=== PATIENT | male | born 1945 | race Caucasian/White ===

== ENCOUNTER 2020-04-21 11:34 | Emergency (ER) | payer MEDICARE, OTHER, SELFPAY ==
[2020-04-21 11:39] VITALS: BP 165/81; PULSE 70; RESP 16; TEMP 36.1; O2SAT 97; BMI 25.7
--- NOTE | 2020-04-21 11:39 | DI.RAD.S_ITS ---
PROCEDURE: XR CHEST 1V INDICATIONS: chest pain TECHNIQUE: One view of the chest was acquired. COMPARISON: None. FINDINGS: Surgical changes and devices: None. Lungs and pleura: Lungs are clear. No pleural effusions or pneumothorax. Mediastinum: Mediastinal contours appear normal. Heart size is normal. Bones and chest wall: No suspicious bony lesions. Overlying soft tissues appear unremarkable. IMPRESSION: Normal for age, source of current chest pain symptoms is not seen. Dictated by: Tashi Giron M.D. on 04/21/2020 at 12:39 Approved by: Tashi Giron M.D. on 04/21/2020 at 12:39
[2020-04-21 12:17] LABS: Add Manual Diff / Slide Review NO; Basophils Absolute Auto 0 /uL (0-100); Basophils Percent Auto 0.7 % (0-2); Eosinophils Absolute Auto 100 /uL (0-450); Eosinophils Percent Auto 1.3 % (2-4); Hematocrit 45.1 % (41-53); Hemoglobin 15.5 g/dL (13.5-17.5); Lymphocytes Absolute Auto 1000 /uL (1100-4500); Lymphocytes Percent Auto 16.4 % (25-40); Mean Corpuscular HGB Conc 34.4 % (30-36); Mean Corpuscular Hemoglobin 32.1 PG (26-34); Mean Corpuscular Volume 93.3 fL (80-100); Monocytes Absolute Auto 300 /uL (0-900); Monocytes Percent Auto 5.5 % (3-14); Neutrophils Absolute Auto 4400 /uL (1500-7000); Neutrophils Percent Auto 76.1 % (50-75); Platelet Count 180 X10^3/uL (150-400); Red Blood Cell Count 4.84 X10^6/uL (4.5-5.9); Red Cell Distribution Width 13.4 % (11.6-14.8); White Blood Cell Count 5.8 X10^3/uL (4.5-11.0)
[2020-04-21 12:27] LABS: Prothrombin Time 11.3 SECONDS (10.1-12.7)
[2020-04-21 12:29] LABS: PTT Partial Thromboplastin Tim 30 SECONDS (26.4-36.2)
[2020-04-21 12:31] LABS: Alanine Aminotransferase 206 IU/L (<50); Albumin 4.4 g/dL (3.5-5.0); Albumin Globulin Ratio 1.6 (1.0-2.8); Alkaline Phosphatase 115 U/L (38-126); Aspartate Aminotransferase 150 IU/L (17-59); BUN Creatinine Ratio 19.2 (6-22); Bilirubin Total 1.3 mg/dL (0.2-1.3); Blood Urea Nitrogen 15 mg/dL (9-20); Calcium 8.8 mg/dL (8.4-10.2); Carbon Dioxide 30 mmol/L (22-32); Chloride 104 mmol/L (98-107); Creatine Kinase 102 U/L (55-170); Estimated Glomerular Filt Rate > 60.0 mL/min (>60); Globulin 2.8 g/dL (1.7-4.1); Glucose 88 mg/dL (80-110); HEMOLYSIS < 15 (0-50); Lipase 79 U/L (23-300); Potassium 3.9 mmol/L (3.4-5.1); Sodium 139 mmol/L (137-145); Total Protein 7.2 g/dL (6.3-8.2)
[2020-04-21 12:43] LABS: Troponin I < 0.012 ng/mL (0.01-0.034)
[2020-04-21 12:46] LABS: CKMB % Relative Index 1.4 % (1.5-5.0)
[2020-04-21 15:10] LABS: Creatine Kinase 96 U/L (55-170)
[2020-04-21 15:14] VITALS: BP 162/80; PULSE 64; RESP 17; O2SAT 98
[2020-04-21 15:21] LABS: Troponin I < 0.012 ng/mL (0.01-0.034)
[2020-04-21 16:21] VITALS: BP 154/86; PULSE 75; RESP 16; O2SAT 96
--- NOTE | 2020-04-21 18:20 | ED_ITS ---
HPI - Chest Pain <JOSE ROBERTO Melchor - Last Filed: 04/21/20 18:39> General Chief Complaint: Chest Pain Stated Complaint: SEVERE CHEST PAIN STARTED LAST NIGHT Time Seen by Provider: 04/21/20 14:43 Source: patient Mode of arrival: Ambulatory Limitations: no limitations History of Present Illness HPI narrative: The patient is a 74-year-old male with history of acid reflux who presents with a chief complaint of 2 hours of epigastric pain last night. He states it happened right after he had dinner, that he had sausage and mashed potatoes. No radiation. No lightheadedness or dizziness. No palpitations. No swelling of the extremities. No fevers no nausea vomiting or diarrhea. He s tates that it lasted for 2 hours and then he felt fine. He is currently without complaint upon arrival to the emergency department today. He denies any history of abdominal surgeries. He did not take anything to help the pain. Related Data Allergies Allergy/AdvReac Type Severity Reaction Status Date / Time No Known Drug Allergies Allergy Verified 04/21/20 15:13 Review of Systems <JOSE ROBERTO Melchor - Last Filed: 04/21/20 18:39> Review of Systems Narrative: GENERAL: Denies chills, fatigue, malaise, fever, sweats. HEENT: Denies sinus pain, ear pain, sore throat, difficulty swallowing, dizziness. RESPIRATORY: Denies dyspnea, cough, wheezing, hemoptysis, sputum. CARDIOVASCULAR: Denies chest pain, palpitations, orthopnea, edema, GASTROINTESTINAL: See HPI : Denies dysuria, frequency, incontinence, hematuria, urinary retention. MUSCULOSKELETAL: denies weakness, joint pain, or bony pain SKIN: Denies rash, skin lesions, or other NEUROLOGIC: Denies weakness, headache, numbness, change in speech, confusion, seizures, incoordination. PSYCHIATRIC: No concerning psychosocial issues. 12 point review of systems is negative except for those stated above Patient History <JOSE ROBERTO Melchor - Last Filed: 04/21/20 18:39> Medical History (Updated 04/21/20 @ 18:25 by JOSE ROBERTO Melchor) Hypertension (Acute) Social History Smoking Status: Former smoker Smoking Status: Former smoker alcohol intake frequency: 0-2 drinks per day Substance Use Type: does not use Exam <CARROLL Melchor-BC - Last Filed: 04/21/20 18:39> Narrative Exam Narrative: GENERAL: This is a well-nourished, well-developed patient, in no acute distress HEAD: Atraumatic. Normocephalic. No temporal or scalp tenderness. EYES: Pupils equal round and reactive. Extraocular motions intact. No scleral icterus. No injection or drainage. ENT: Nose without bleeding, purulent drainage or septal hematoma. Throat without erythema, tonsillar hypertrophy or exudate. Uvula midline. Airway patent. NECK: Trachea midline. No JVD or lymphadenopathy. Supple, nontender, no meningeal signs. CARDIOVASCULAR: Regular rate and rhythm RESPIRATORY: Clear to auscultation. Breath sounds equal bilaterally. No wheezes, rales, or rhonchi. Node no cough. No increased respiratory effort. No acc essory muscle use. GASTROINTESTINAL: Abdomen soft, non-tender, nondistended. No hepato-splenomegaly, or palpable masses. No guarding. No pain to epigastric palpation. Negative Leahy sign. EXTREMITIES: No clubbing, cyanosis, or edema. No joint tenderness, effusion, or edema noted. BACK: Nontender without deformity or crepitance. No flank tenderness. NEURO: AOx3. SKIN: No rash or erythema. Initial Vital Signs Initial Vital Signs: Vital Signs Temperature 96.9 F L 04/21/20 11:39 Pulse Rate 70 04/21/20 11:39 Respiratory Rate 16 04/21/20 11:39 Blood Pressure 165/81 H 04/21/20 11:39 Pulse Oximetry 97 04/21/20 11:39 <Estephanie Marcano DO - Last Filed: 04/24/20 08:18> Initial Vital Signs Initial Vital Signs: Vital Signs Temperature 96.9 F L 04/21/20 11:39 Pulse Rate 70 04/21/20 11:39 Respiratory Rate 16 04/21/20 11:39 Blood Pressure 165/81 H 04/21/20 11:39 Pulse Oximetry 97 04/21/20 11:39 Scores <CARROLL Melchor-BC - Last Filed: 04/21/20 18:39> GCS [place] coma scale eye opening: Spontaneous [place] coma scale verbal response: Orientated [place] coma scale motor response: Obey commands Wong coma scale total score: 15 Course <JOSE ROBERTO Melchor - Last Filed: 04/21/20 18:39> Orders Ordered: ED Orders 04/21/20 11:39 XR chest 1V Stat EKG-12 Lead Stat 04/21/20 12:10 Complete Blood Count AUTO DIFF Stat Comprehensive Metabolic Panel Stat Lipase Stat Partial Thromboplastin Time Stat Prothrombin Time INR Stat Troponin & CK Cardiac Panel Stat 04/21/20 14:53 Troponin & CK Cardiac Panel Stat Vital Signs Vital signs: Vital Signs - 8 hr 04/21/20 11:39 04/21/20 15:14 04/21/20 16:21 Temperature 96.9 F L Pulse Rate 70 64 75 Respiratory Rate 16 17 16 Blood Pressure 165/81 H 154/86 H Blood Pressure [Right Arm] 162/80 H Pulse Oximetry 97 98 96 <Estephanie Marcano DO - Last Filed: 04/24/20 08:18> Orders Ordered: ED Orders 04/21/20 11:39 XR chest 1V Stat EKG-12 Lead Stat 04/21/20 12:10 Complete Blood Count AUTO DIFF Stat Comprehensive Metabolic Panel Stat Lipase Stat Partial Thromboplastin Time Stat Prothrombin Time INR Stat Troponin & CK Cardiac Panel Stat 04/21/20 14:53 Troponin & CK Cardiac Panel Stat Vital Signs Vital signs: Vital Signs - 8 hr 04/21/20 11:39 04/21/20 15:14 04/21/20 16:21 Temperature 96.9 F L Pulse Rate 70 64 75 Respiratory Rate 16 17 16 Blood Pressure 165/81 H 154/86 H Blood Pressure [Right Arm] 162/80 H Pulse Oximetry 97 98 96 MDM - Chest Pain <JOSE ROBERTO Melchor - Last Filed: 04/21/20 18:39> Lab Data Attestation: I reviewed the patient's lab results. Result diagrams: 04/21/20 12:10 04/21/20 12:10 Labs: Lab Results 04/21/20 04/21/20 04/21/20 Range/Units 12:10 12:10 12:10 WBC 5.8 (4.5-11.0) X10^3/uL RBC 4.84 (4.5-5.9) X10^6/uL Hgb 15.5 (13.5-17.5) g/dL Hct 45.1 (41-53) % MCV 93.3 (80-100) fL MCH 32.1 (26-34) PG MCHC 34.4 (30-36) % RDW 13.4 (11.6-14.8) % Plt Count 180 (150-400) X10^3/uL Neut % (Auto) 76.1 H (50-75) % Lymph % (Auto) 16.4 L (25-40) % Gregg % (Auto) 5.5 (3-14) % Eos % (Auto) 1.3 L (2-4) % Baso % (Auto) 0.7 (0-2) % Neut # (Auto) 4400 (8425-3151) /uL Lymph # (Auto) 1000 L (3221-7874) /uL Gregg # (Auto) 300 (0-900) /uL Eos # (Auto) 100 (0-450) /uL Baso # (Auto) 0 (0-100) /uL PT 11.3 (10.1-12.7) SECONDS INR 1.0 (0.9-1.3) APTT 30 (26.4-36.2) SECONDS Sodium 139 (137-145) mmol/L Potassium 3.9 (3.4-5.1) mmol/L Chloride 104 (98-107) mmol/L Carbon Dioxide 30 (22-32) mmol/L BUN 15 (9-20) mg/dL Creatinine 0.78 (0.66-1.25) mg/dL Estimated GFR > 60.0 (>60) mL/min BUN/Creatinine Ratio 19.2 (6-22) Glucose 88 (80-110) mg/dL Calcium 8.8 (8.4-10.2) mg/dL Total Bilirubin 1.3 (0.2-1.3) mg/dL AST 150 H (17-59) IU/L ALT 206 H (<50) IU/L Alkaline Phosphatase 115 (38-126) U/L Total Creatine Kinase 102 (55-170) U/L CK-MB (CK-2) 1.40 (<2.37) ng/mL CK-MB (CK-2) Rel Index 1.4 L (1.5-5.0) % Troponin I < 0.012 (0.01-0.034) ng/mL Total Protein 7.2 (6.3-8.2) g/dL Albumin 4.4 (3.5-5.0) g/dL Globulin 2.8 (1.7-4.1) g/dL Albumin/Globulin Ratio 1.6 (1.0-2.8) Lipase 79 (23-300) U/L // Range/Units 14:53 WBC (4.5-11.0) X10^3/uL RBC (4.5-5.9) X10^6/uL Hgb (13.5-17.5) g/dL Hct (41-53) % MCV (80-100) fL MCH (26-34) PG MCHC (30-36) % RDW (11.6-14.8) % Plt Count (150-400) X10^3/uL Neut % (Auto) (50-75) % Lymph % (Auto) (25-40) % Gregg % (Auto) (3-14) % Eos % (Auto) (2-4) % Baso % (Auto) (0-2) % Neut # (Auto) (1746-3542) /uL Lymph # (Auto) (5266-0883) /uL Gregg # (Auto) (0-900) /uL Eos # (Auto) (0-450) /uL Baso # (Auto) (0-100) /uL PT (10.1-12.7) SECONDS INR (0.9-1.3) APTT (26.4-36.2) SECONDS Sodium (137-145) mmol/L Potassium (3.4-5.1) mmol/L Chloride (98-107) mmol/L Carbon Dioxide (22-32) mmol/L BUN (9-20) mg/dL Creatinine (0.66-1.25) mg/dL Estimated GFR (>60) mL/min BUN/Creatinine Ratio (6-22) Glucose (80-110) mg/dL Calcium (8.4-10.2) mg/dL Total Bilirubin (0.2-1.3) mg/dL AST (17-59) IU/L ALT (<50) IU/L Alkaline Phosphatase (38-126) U/L Total Creatine Kinase 96 (55-170) U/L CK-MB (CK-2) TNP (<2.37) ng/mL CK-MB (CK-2) Rel Index TNP (1.5-5.0) % Troponin I < 0.012 (0.01-0.034) ng/mL Total Protein (6.3-8.2) g/dL Albumin (3.5-5.0) g/dL Globulin (1.7-4.1) g/dL Albumin/Globulin Ratio (1.0-2.8) Lipase (23-300) U/L Imaging Data Chest x-ray: Radiologist's Impression: [facility] [place] [id number] XRay Report Signed Patient: Dieudonne McclainR#: [id number] : 6Acct:[id number] Age/Sex: 74 / MDate of Service: 04/21/20 Loc: ED Accession Number: [id number] Procedure: XR chest 1V Ordering Provider: Estephanie Marcano D.O. PROCEDURE: XR CHEST 1V INDICATIONS: chest pain TECHNIQUE: One view of the chest was acquired. COMPARISON: None. FINDINGS: Surgical changes and devices: None. Lungs and pleura: Lungs are clear. No pleural effusions or pneumothorax. Mediastinum: Mediastinal contours appear normal. Heart size is normal. Bones and chest wall: No suspicious bony lesions. Overlying soft tissues appear unremarkable. IMPRESSION: Normal for age, source of current chest pain symptoms is not seen. Dictated by: Tashi Giron M.D. on 04/21/2020 at 12:39 Approved by: Tashi Giron M.D. on 04/21/2020 at 12:39 ECG Data Attestation: I personally reviewed and interpreted this ECG as follows: Interpretation: Sinus rhythm. Ventricular rate 70. P.r. interval 189. QRS 101. viewed by Dr Marcano MDM Narrative Medical decision making narrative: The patient is a 74-year-old male who presents with a chief complaint of severe epigastric pain for 2 hours last night after eating a sausage and mashed potatoes. His EKG has no acute findings, his initial troponin is negative and his 3 hour repeat troponin is also negative. He has been without pain since last night. He has no evidence of acute coronary syndrome today, with normal EKG, negative troponin x2 as well as normal overall labs. It is possible that he had an episode of acid reflux or biliary colic after eating a fatty meal, such as his bratwurst. However encouraged him to follow up with primary care provider and come back to the emergency department for any acute concerns in the meantime. I discussed that evaluation today does not replace a further cardiac workup including stress test etcetera. The patient requested to leave several times throughout his stay in the emergency department. Patient has no questions or concerns upon discharge and states understanding of return precautions as well as follow-up care. <Estephanie Marcano, DO - Last Filed: 04/24/20 08:18> Lab Data Labs: Lab Results 04/21/20 04/21/20 04/21/20 Range/Units 12:10 12:10 12:10 WBC 5.8 (4.5-11.0) X10^3/uL RBC 4.84 (4.5-5.9) X10^6/uL Hgb 15.5 (13.5-17.5) g/dL Hct 45.1 (41-53) % MCV 93.3 (80-100) fL MCH 32.1 (26-34) PG MCHC 34.4 (30-36) % RDW 13.4 (11.6-14.8) % Plt Count 180 (150-400) X10^3/uL Neut % (Auto) 76.1 H (50-75) % Lymph % (Auto) 16.4 L (25-40) % Gregg % (Auto) 5.5 (3-14) % Eos % (Auto) 1.3 L (2-4) % Baso % (Auto) 0.7 (0-2) % Neut # (Auto) 4400 (1834-8599) /uL Lymph # (Auto) 1000 L (9332-6534) /uL Gregg # (Auto) 300 (0-900) /uL Eos # (Auto) 100 (0-450) /uL Baso # (Auto) 0 (0-100) /uL PT 11.3 (10.1-12.7) SECONDS INR 1.0 (0.9-1.3) APTT 30 (26.4-36.2) SECONDS Sodium 139 (137-145) mmol/L Potassium 3.9 (3.4-5.1) mmol/L Chloride 104 (98-107) mmol/L Carbon Dioxide 30 (22-32) mmol/L BUN 15 (9-20) mg/dL Creatinine 0.78 (0.66-1.25) mg/dL Estimated GFR > 60.0 (>60) mL/min BUN/Creatinine Ratio 19.2 (6-22) Glucose 88 (80-110) mg/dL Calcium 8.8 (8.4-10.2) mg/dL Total Bilirubin 1.3 (0.2-1.3) mg/dL AST 150 H (17-59) IU/L ALT 206 H (<50) IU/L Alkaline Phosphatase 115 (38-126) U/L Total Creatine Kinase 102 (55-170) U/L CK-MB (CK-2) 1.40 (<2.37) ng/mL CK-MB (CK-2) Rel Index 1.4 L (1.5-5.0) % Troponin I < 0.012 (0.01-0.034) ng/mL Total Protein 7.2 (6.3-8.2) g/dL Albumin 4.4 (3.5-5.0) g/dL Globulin 2.8 (1.7-4.1) g/dL Albumin/Globulin Ratio 1.6 (1.0-2.8) Lipase 79 (23-300) U/L 06/25/20 Range/Units 14:53 WBC (4.5-11.0) X10^3/uL RBC (4.5-5.9) X10^6/uL Hgb (13.5-17.5) g/dL Hct (41-53) % MCV (80-100) fL MCH (26-34) PG MCHC (30-36) % RDW (11.6-14.8) % Plt Count (150-400) X10^3/uL Neut % (Auto) (50-75) % Lymph % (Auto) (25-40) % Gregg % (Auto) (3-14) % Eos % (Auto) (2-4) % Baso % (Auto) (0-2) % Neut # (Auto) (0060-5125) /uL Lymph # (Auto) (5195-9361) /uL Gregg # (Auto) (0-900) /uL Eos # (Auto) (0-450) /uL Baso # (Auto) (0-100) /uL PT (10.1-12.7) SECONDS INR (0.9-1.3) APTT (26.4-36.2) SECONDS Sodium (137-145) mmol/L Potassium (3.4-5.1) mmol/L Chloride (98-107) mmol/L Carbon Dioxide (22-32) mmol/L BUN (9-20) mg/dL Creatinine (0.66-1.25) mg/dL Estimated GFR (>60) mL/min BUN/Creatinine Ratio (6-22) Glucose (80-110) mg/dL Calcium (8.4-10.2) mg/dL Total Bilirubin (0.2-1.3) mg/dL AST (17-59) IU/L ALT (<50) IU/L Alkaline Phosphatase (38-126) U/L Total Creatine Kinase 96 (55-170) U/L CK-MB (CK-2) TNP (<2.37) ng/mL CK-MB (CK-2) Rel Index TNP (1.5-5.0) % Troponin I < 0.012 (0.01-0.034) ng/mL Total Protein (6.3-8.2) g/dL Albumin (3.5-5.0) g/dL Globulin (1.7-4.1) g/dL Albumin/Globulin Ratio (1.0-2.8) Lipase (23-300) U/L Discharge Plan Departure Patient Disposition: Home Clinical Impression: Atypical chest pain, Epigastric abdominal pain Discharge Date/Time: 04/21/20 16:21 Instructions: DI for Abdominal Pain-Adult, DI for Atypical Chest Pain, DI for Chest Pain Activity Restrictions/Additional Instructions: Thank you for trusting us with your care today. As I discussed, your lab work came back very well, EKG is reassuring. I am not exactly sure why you had this epigastric pain last night as epigastric pain has many causes. Please follow-up with primary care provider in the next few days. Please come back to the emergency department for any acute concerns such as severe chest pain, shortness of breath, concern of heart attack or stroke. Referrals: Tab Zhou MD [Physician] - <Estephanie Marcano DO - Last Filed: 04/24/20 08:18> Cosign ED Attending Cosignature Attestation: I was immediately available in the department for consultation. Documentation has been reviewed. I agree with assessment and plan.
== END 2020-04-21 16:21 | disposition home or self-care (01) ==
PROVIDERS: Emergency Medicine; Emergency Provider Nurse Practitioner Family
DX: R07.89 Other chest pain (principal); R10.13 Epigastric pain; I10 Essential (primary) hypertension
CPT/HCPCS: 36415; 71045; 80053; 82550; 82553; 83690; 84484; 85025; 85610; 85730; 93005; 99284

== ENCOUNTER → 2020-10-07 19:32 | Outpatient (ROUT) | payer MEDICARE, OTHER, SELFPAY ==
[2020-10-07 19:43] LABS: Add Manual Diff / Slide Review NO; Basophils Absolute Auto 100 /uL (0-100); Basophils Percent Auto 0.9 % (0-2); Eosinophils Absolute Auto 100 /uL (0-450); Eosinophils Percent Auto 1.8 % (2-4); Hematocrit 49.5 % (41-53); Hemoglobin 16.5 g/dL (13.5-17.5); Lymphocytes Absolute Auto 1700 /uL (1100-4500); Mean Corpuscular HGB Conc 33.3 % (30-36); Mean Corpuscular Hemoglobin 31.9 PG (26-34); Mean Corpuscular Volume 95.5 fL (80-100); Monocytes Absolute Auto 400 /uL (0-900); Neutrophils Absolute Auto 4000 /uL (1500-7000); Neutrophils Percent Auto 63.3 % (50-75); Platelet Count 204 X10^3/uL (150-400); Red Blood Cell Count 5.18 X10^6/uL (4.5-5.9); Red Cell Distribution Width 13.3 % (11.6-14.8); White Blood Cell Count 6.3 X10^3/uL (4.5-11.0)
[2020-10-07 19:50] LABS: Alanine Aminotransferase 24 IU/L (<50); Albumin 4.3 g/dL (3.5-5.0); Albumin Globulin Ratio 1.5 (1.0-2.8); Alkaline Phosphatase 61 U/L (38-126); Aspartate Aminotransferase 26 IU/L (17-59); BUN Creatinine Ratio 20.2 (6-22); Bilirubin Total 1.4 mg/dL (0.2-1.3); Blood Urea Nitrogen 20 mg/dL (9-20); Calcium 9.1 mg/dL (8.4-10.2); Carbon Dioxide 33 mmol/L (22-32); Chloride 103 mmol/L (98-107); Estimated Glomerular Filt Rate > 60.0 mL/min (>60); Globulin 2.9 g/dL (1.7-4.1); Glucose 68 mg/dL (80-110); HEMOLYSIS 15 (0-50); Magnesium 2.2 mg/dL (1.6-2.3); Sodium 139 mmol/L (137-145); Total Protein 7.2 g/dL (6.3-8.2)
== END ==
PROVIDERS: Visit Provider Internal Medicine
DX: R53.83 Other fatigue (principal); E83.42 Hypomagnesemia
CPT/HCPCS: 80053; 83735; 84443; 85025

== ENCOUNTER → 2021-01-02 19:28 | Outpatient (ROUT) | payer MEDICARE, OTHER, SELFPAY ==
[2021-01-02 19:48] LABS: Alanine Aminotransferase 22 IU/L (<50); Albumin 4.2 g/dL (3.5-5.0); Albumin Globulin Ratio 1.5 (1.0-2.8); Alkaline Phosphatase 71 U/L (38-126); Aspartate Aminotransferase 25 IU/L (17-59); BUN Creatinine Ratio 20.8 (6-22); Bilirubin Total 1.1 mg/dL (0.2-1.3); Blood Urea Nitrogen 21 mg/dL (9-20); Calcium 9.1 mg/dL (8.4-10.2); Carbon Dioxide 30 mmol/L (22-32); Chloride 104 mmol/L (98-107); Cholesterol 192 mg/dL (140-199); Estimated Glomerular Filt Rate > 60.0 mL/min (>60); Globulin 2.8 g/dL (1.7-4.1); Glucose 102 mg/dL (80-110); HDL Cholesterol 91 mg/dL (40-60); HEMOLYSIS < 15 (0-50); LDL Cholesterol Calculated 90 mg/dL (<100); Magnesium 2.4 mg/dL (1.6-2.3); Potassium 4.4 mmol/L (3.4-5.1); Sodium 139 mmol/L (137-145); Triglycerides 55 mg/dL (35-150)
[2021-01-02 19:51] LABS: Add Manual Diff / Slide Review NO; Basophils Absolute Auto 100 /uL (0-100); Basophils Percent Auto 0.9 % (0-2); Eosinophils Absolute Auto 300 /uL (0-450); Eosinophils Percent Auto 3.7 % (2-4); Hematocrit 49.1 % (41-53); Hemoglobin 16.2 g/dL (13.5-17.5); Lymphocytes Absolute Auto 1500 /uL (1100-4500); Lymphocytes Percent Auto 22.2 % (25-40); Mean Corpuscular Hemoglobin 31.6 PG (26-34); Mean Corpuscular Volume 95.5 fL (80-100); Monocytes Absolute Auto 400 /uL (0-900); Monocytes Percent Auto 6.4 % (3-14); Neutrophils Absolute Auto 4700 /uL (1500-7000); Neutrophils Percent Auto 66.8 % (50-75); Platelet Count 203 X10^3/uL (150-400); Red Blood Cell Count 5.14 X10^6/uL (4.5-5.9); Red Cell Distribution Width 12.8 % (11.6-14.8)
[2021-01-02 20:22] LABS: TSH w/ Reflex to FT4 2.36 uIU/mL (0.47-4.68)
== END ==
PROVIDERS: Visit Provider Internal Medicine
DX: I44.1 Atrioventricular block, second degree (principal); E83.42 Hypomagnesemia
CPT/HCPCS: 80053; 80061; 83735; 84443; 85025

== ENCOUNTER → 2022-12-26 15:22 | Outpatient (CLI) | payer MEDICARE, OTHER, SELFPAY ==
[2022-12-26 16:06] LABS: Hematocrit 44.2 % (41-53); Hemoglobin 14.8 g/dL (13.5-17.5); Mean Corpuscular HGB Conc 33.5 % (30-36); Mean Corpuscular Hemoglobin 31.6 PG (26-34); Mean Corpuscular Volume 94.4 fL (80-100); Platelet Count 195 X10^3/uL (150-400); Red Blood Cell Count 4.68 X10^6/uL (4.5-5.9); Red Cell Distribution Width 13.3 % (11.6-14.8); White Blood Cell Count 5.5 X10^3/uL (4.5-11.0)
[2022-12-26 16:29] LABS: Alanine Aminotransferase 24 IU/L (<50); Albumin Globulin Ratio 1.4 (1.0-2.8); Alkaline Phosphatase 57 U/L (38-126); Aspartate Aminotransferase 24 IU/L (17-59); BUN Creatinine Ratio 19.1 (6-22); Bilirubin Total 1.5 mg/dL (0.2-1.3); Blood Urea Nitrogen 17 mg/dL (9-20); Calcium 8.5 mg/dL (8.4-10.2); Carbon Dioxide 30 mmol/L (22-32); Chloride 102 mmol/L (98-107); Cholesterol 181 mg/dL (140-199); Estimated Glomerular Filt Rate > 60 mL/min (>60); Globulin 2.8 g/dL (1.7-4.1); Glucose 96 mg/dL (80-110); HDL Cholesterol 93 mg/dL (40-60); HEMOLYSIS < 15 (0-50); LDL Cholesterol Calculated 72 mg/dL (<100); Potassium 4.1 mmol/L (3.4-5.1); Sodium 141 mmol/L (137-145); Total Protein 6.8 g/dL (6.3-8.2); Triglycerides 80 mg/dL (35-150)
[2022-12-26 16:56] LABS: TSH w/ Reflex to FT4 3.31 uIU/mL (0.47-4.68)
== END ==
PROVIDERS: PCP Internal Medicine; Referring Provider Internal Medicine; Visit Provider Internal Medicine
DX: E78.2 Mixed hyperlipidemia (principal); I10 Essential (primary) hypertension; I49.3 Ventricular premature depolarization; N13.8 Other obstructive and reflux uropathy; N40.1 Benign prostatic hyperplasia with lower urinary tract symptoms
CPT/HCPCS: 36415; 80053; 80061; 84443; 85027

== ENCOUNTER → 2023-04-10 10:33 | Outpatient (CLI) | payer MEDICARE, OTHER, SELFPAY ==
[2023-04-10 12:05] LABS: Hematocrit 43.5 % (41-53); Hemoglobin 14.7 g/dL (13.5-17.5); Mean Corpuscular HGB Conc 33.9 % (30-36); Mean Corpuscular Hemoglobin 32.1 PG (26-34); Mean Corpuscular Volume 94.8 fL (80-100); Platelet Count 177 X10^3/uL (150-400); Red Blood Cell Count 4.59 X10^6/uL (4.5-5.9); Red Cell Distribution Width 13.4 % (11.6-14.8); White Blood Cell Count 6.4 X10^3/uL (4.5-11.0)
[2023-04-10 12:21] LABS: Alanine Aminotransferase 36 IU/L (<50); Albumin 3.9 g/dL (3.5-5.0); Albumin Globulin Ratio 1.4 (1.0-2.8); Alkaline Phosphatase 61 U/L (38-126); Amylase 70 U/L (30-110); Aspartate Aminotransferase 25 IU/L (17-59); BUN Creatinine Ratio 19.5 (6-22); Bilirubin Total 1.3 mg/dL (0.2-1.3); Blood Urea Nitrogen 17 mg/dL (9-20); Calcium 8.5 mg/dL (8.4-10.2); Carbon Dioxide 30 mmol/L (22-32); Chloride 105 mmol/L (98-107); Estimated Glomerular Filt Rate > 60 mL/min (>60); Globulin 2.7 g/dL (1.7-4.1); Glucose 89 mg/dL (80-110); HEMOLYSIS 18 (0-50); Lipase 57 U/L (23-300); Sodium 139 mmol/L (137-145); Total Protein 6.6 g/dL (6.3-8.2)
== END ==
PROVIDERS: PCP Internal Medicine; Referring Provider Internal Medicine; Visit Provider Internal Medicine
DX: R10.9 Unspecified abdominal pain (principal)
CPT/HCPCS: 36415; 80053; 82150; 83690; 85027

== ENCOUNTER → 2023-04-18 07:43 | Outpatient (CLI) | payer MEDICARE, OTHER, SELFPAY ==
--- NOTE | 2023-04-18 07:44 | DI.US.S_ITS ---
PROCEDURE: US ABDOMEN COMPLETE INDICATIONS: ABDOMINAL PAIN TECHNIQUE: Real-time scanning was performed of the abdominal and retroperitoneal organs, with image documentation. COMPARISON: None. FINDINGS: Liver: Liver is normal in size and homogeneous in echotexture. Gallbladder: The gallbladder is filled with gallstones, with the largest measuring to 2.3 cm. The gallbladder wall is not thickened, measuring 3 mm or less. No specific pericholecystic fluid is seen. The sonographic Elahy sign is negative. Biliary ducts: Intrahepatic bile ducts are non-dilated. Extrahepatic bile duct caliber measures 6 mm. Normal is 6-7 mm or less in diameter, or 10 mm or less post-cholecystectomy. Pancreas: Visualized portions of the pancreas are sonographically normal. Spleen: Spleen is normal in size and homogeneous in echotexture. Kidneys: Kidneys are normal in size and echotexture. Right kidney measures 11.5 cm long; left kidney measures 12.2 cm long. No hydronephrosis. No solid masses. There is a cyst along the lateral aspect the left kidney that measures up to 5.4 cm. A 6 mm right kidney echogenic focus can be seen that measures up to 7 mm. Aorta: Visualized aorta is normal in caliber at less than 3 cm. Iliacs: Proximal common iliac arteries are normal in caliber at less than 2.5 cm. IVC: Intrahepatic inferior vena cava is patent. Miscellaneous: No free abdominal fluid. IMPRESSION: Gallstones are seen, yet without additional sonographic signs of cholecystitis. Negative for biliary dilatation. Please correlate with physical examination findings, patient presentation, and laboratory values. Likely nonobstructing right-sided kidney stone, 7 mm. Additional findings: 5.4 cm simple left renal cyst Dictated by: Valeriy Renteria M.D. on 04/18/2023 at 13:25 Approved by: Valeriy Renteria M.D. on 04/18/2023 at 13:26
== END ==
PROVIDERS: PCP Internal Medicine; Referring Provider Internal Medicine; Visit Provider Internal Medicine
DX: K80.20 Calculus of gallbladder without cholecystitis without obstruction (principal); N28.1 Cyst of kidney, acquired; R10.9 Unspecified abdominal pain
CPT/HCPCS: 76700

== ENCOUNTER 2023-09-04 13:53 | Day surgery (SDC) | payer MEDICARE, OTHER, SELFPAY ==
[2023-08-29 08:46] VITALS: BMI 23.7
[2023-09-04] VITALS (7 sets, daily range): BP systolic 114–160; BP diastolic 59–81; PULSE 47–66; RESP 11–16; TEMP 36.1–36.9; O2SAT 92–98; BMI 23.7
--- NOTE | 2023-09-04 | PATH_ITS ---
[facility] Accession Number: [id number] No. of containers..01 Tissue . 01 Material submitted: . gallbladder - GALLBLADDER AND CONTENTS . 01 Diagnosis: Gallbladder and Contents, Excision: Chronic cholecystitis and cholelithiasis. MRV 09/12/2023 1326 Local . 01 Electronically signed: . Sonia Dale MD, Pathologist NPI- [id number] . 01 Gross description: . The specimen is received in formalin labeled with the patient's name, , and gallbladder and contents, and consists of an intact gallbladder measuring 7.3 x 3.5 x 2.7 cm with an unremarkable external surface. The cystic duct margin is inked blue and no pericystic lymph node is identified. The lumen contains multiple large green faceted calculi measuring up to 2.5 cm in greatest dimension grossly obstructing the cystic duct and admixed with a small amount of green viscous bile. The mucosa is wu to brown and trabecular with no yellow discoloration, polyps, or lesions identified. The guevara average 0.3 cm thick, and medical billing representative sections to include the cystic duct margin and full thickness sections are submitted in cassette A1. ([id number]) /ROSALIE 09/06/2023 0644 Local . 01 Pathologist provided ICD-10: K80.50 . 01 CPT . 257202 Specimen Comment: A courtesy copy of this report has been sent to [phone] Performed at: 01 [facility] [address] [place] [address] [id number] MD Shaggy Joseph MD Phone: [phone]
[2023-09-04] MEDS: ACETAMINOPHEN 325 MG TABLET 975 MG PO (14:22)
[2023-09-04] MEDS: LACTATED RINGERS 1,000 ML 42 ML IV ×2 (14:22→16:22)
--- NOTE | 2023-09-04 15:22 | SUR.OPER ---
Supine on padded OR bed, head on pillow, safety belt at thigh, left arm padded and tucked at side. Right arm secured on padded arm board <90 degrees abduction. Legs uncrossed. Padded footboard in place. Tape over blanket to secure lower legs.
--- NOTE | 2023-09-04 15:23 | PM.HP.1 ---
History of Present Illness History of Present Illness Date Patient Seen: 09/04/23 Time Patient Seen: 15:23 Chief complaint: [facility] Narrative: 78M with biliary colic here for laparoscopic cholecystectomy. Last seen March 2023 plan at that time was observation. He continues to have episodes of post prandial abdominal pain and would now like to proceed with laparoscopic cholecystectomy. [facility] Medical History Enlarged prostate Cholelithiasis Vision disorder Osteoarthritis Tinnitus Hearing loss Cataracts, bilateral Bilateral epiretinal membrane Frequent PVCs BPH w urinary obs/LUTS Collagenous colitis GERD without esophagitis Mixed hyperlipidemia Essential hypertension Surgical History Hx of nasal septoplasty (2018) Anesthesia History of ear surgery (~1984) History of eye surgery (~2020) History of hip replacement (~2013) Family History Father Diabetes mellitus History of heart disease Hypertension Mother Cancer Hypertension Social History marital status: household members: spouse lives independently: Yes occupational status: previously employed Smoking Status: Former smoker alcohol intake: current substance use type: does not use Meds Home Medications and Allergies Home Medications Medication Instructions Recorded Confirmed Type budesonide 3 mg 9 mg (3 x 3 mg) PO DAILY #270 ea 12/26/22 09/04/23 Rx capsule,delayed,extended release cholecalciferol (vitamin D3) 50 50 mcg PO DAILY 12/26/22 09/04/23 History mcg (2,000 unit) tablet (Vitamin D3) doxazosin 2 mg tablet 2 mg PO DAILY #90 tabs 12/26/22 09/04/23 Rx omeprazole 20 mg capsule,delayed 20 mg PO DAILY #90 caps 12/26/22 09/04/23 Rx release simvastatin 10 mg tablet 10 mg PO DAILY #90 tabs 12/26/22 09/04/23 Rx vit C 250 mg-vit E 90 mg-zinc 40 1 tab PO BID 12/26/22 09/04/23 History mg-copper 1 aa-svpdbe-adibpt capsule (PreserVision AREDS-2) bisoprolol fumarate 5 mg tablet 0.5 mg PO DAILY 08/29/23 09/04/23 History Allergies Allergy/AdvReac Type Severity Reaction Status Date / Time No Known Drug Allergies Allergy Verified 04/25/23 10:30 Exam Vital Signs (past 8 hours): - 09/04/23 14:00 Temperature 97 F L Pulse Rate 66 Respiratory Rate 16 Blood Pressure 160/81 H Pulse Oximetry 96 Oxygen Delivery Method Room Air Oxygen Delivery Method Room Air Narrative Exam Narrative: General adult man alert oriented no acute distress Chest nonlabored respiration Extremities warm well perfused Assessment & Plan Assessment & Plan narrative: 78 y.o man with biliary colic here for laparoscopic cholecystectomy. Overview of the operation again discussed. Operative risks including but not limited to hemorrhage, infection, damage to surrounding structures, biliary injury discussed. Questions have been answered and he is in agreement with this plan. He provides his written and verbal consent to proceed.
[2023-09-04] MEDS: CEFAZOLIN 2 GM/100 ML PREMIX 100 ML IV (15:40)
[2023-09-04] MEDS: BUPIVACAINE 0.25% (PF) VIAL 30 ML INJ (15:55)
[2023-09-04] MEDS: OXYCODONE IR 5 MG TABLET PO (17:09)
--- NOTE | 2023-09-04 17:10 | P.OP_ITS ---
Operative Date/Time/Diagnoses Date of procedure: 09/04/23 Time of procedure: 17:10 Pre-op diagnosis: Biliary colic Post-op diagnosis: same Procedure & Clinicians Procedure: Laparoscopic cholecystectomy Same procedure as scheduled: Yes Indications: Symptoms and radiographic findings consistent with biliary colic Surgeon: Hardeep Posada Anesthesia Type: General Operative Notes Findings: Critical view of safety established. Large gallstones Specimen(s): other (Gallbladder) Procedure in detail: The patient was placed supine on the table and bilateral lower extremity compression devices were applied. Anesthesia was induced they were intubated with an endotracheal tube and received 2g of Ancef. A time-out was performed. They were prepped and draped in sterile fashion. An infraumbilical incision was made. The fascia was elevated incised and the abdomen was entered atraumatically. A blunt tip 12mm balloon trocar was then inserted, pneumo peritoneum was established and inspection of the abdomen demonstrated no evidence of injury. They were placed head up and right side up and then a 11 mm port was placed high in the epigastrium and two 5mm in the right upper quadrant. The gallbladder was grasped by the fundus and retracted over the liver and retracted laterally by the infundibulum. Gallbladder was well encased in omentum consistent with chronic disease. Using electrocautery the lateral plane between the gallbladder and the liver was opened towards the fundus. The gallbladder was then retracted laterally and the medial plane was developed in the same manner. With the gallbladder mobilized the bottom of the cystic plate was visualized. The hepatocystic triangle was meticulosly skeletonized with blunt dissection of fat and fibrous tissue from both the front and the back. Only two structures were then clearly seen entering the gallbladder the cystic duct and the cystic artery. With the critical view of safety fully established the cystic duct was clipped twice proximally and once distally using the 10 mm Weck hemoclip applied under direct visualization and then sharply divided. The cystic artery was divided in the same fashion. Was a posterior branch of the cystic artery which was controlled with hemoclips. The gallbladder was removed from the liver bed using electro cautery. The liver bed was then inspected for hemostasis and this was achieved. The abdomen was irrigated with sterile saline and inspection was made that showed the clips in good position. The specimen was removed using Endo-Catch. The abdomen was desufflated. The umbilical fascia was closed with 0 Vicryl in a [id number] fashion under direct visualization. Skin incisions were irrigated and closed with 4-0 Monocryl. 30 ml of 0.25% bupivacaine was infiltrated into the subcutaneous tissue of the incisions. The wounds were sealed with Dermabond. Patient emerged from anesthesia was extubated and transferred to recovery in stable condition. The sponge and instrument count at the end of the operation was correct. Complications: none Post-operative Condition: stable Disposition: same day surgery
== END 2023-09-04 17:33 | disposition home or self-care (01) ==
PROVIDERS: PCP Internal Medicine; Referring Provider Surgery; Visit Provider Surgery
PROC: 0FT44ZZ Resection of Gallbladder, Percutaneous Endoscopic Approach (ICD-10-PCS; CPT 47562; principal; 2023-09-04 15:15)
DX: K80.10 Calculus of gallbladder with chronic cholecystitis without obstruction (principal)
CPT/HCPCS: 47562; J0690; J1100; J1885; J2405; J2704; J3010

== ENCOUNTER → 2023-12-30 10:39 | Outpatient (CLI) | payer MEDICARE, OTHER, SELFPAY ==
[2023-12-30 13:32] LABS: Aspartate Aminotransferase 26 IU/L (17-59); BUN Creatinine Ratio 18.5 (6-22); Blood Urea Nitrogen 17 mg/dL (9-20); Calcium 8.7 mg/dL (8.4-10.2); Carbon Dioxide 30 mmol/L (22-32); Chloride 107 mmol/L (98-107); Cholesterol 160 mg/dL (140-199); Estimated Glomerular Filt Rate > 60 mL/min (>60); Glucose 87 mg/dL (80-110); HDL Cholesterol 85 mg/dL (40-60); HEMOLYSIS < 15 (0-50); LDL Cholesterol Calculated 58 mg/dL (<100); Sodium 141 mmol/L (137-145); Triglycerides 87 mg/dL (35-150)
== END ==
LOC: LAB 10:40
PROVIDERS: PCP Internal Medicine; Referring Provider Internal Medicine; Visit Provider Internal Medicine
DX: E78.2 Mixed hyperlipidemia (principal); I10 Essential (primary) hypertension
CPT/HCPCS: 36415; 80048; 80061; 84450

== ENCOUNTER → 2024-12-23 11:44 | Outpatient (CLI) | payer MEDICARE, OTHER, SELFPAY ==
[2024-12-23 12:28] LABS: Hematocrit 47.7 % (41-53); Mean Corpuscular HGB Conc 33.6 % (30-36); Mean Corpuscular Hemoglobin 32.4 PG (26-34); Mean Corpuscular Volume 96.5 fL (80-100); Platelet Count 226 X10^3/uL (150-400); Red Blood Cell Count 4.94 X10^6/uL (4.5-5.9); Red Cell Distribution Width 13.1 % (11.6-14.8); White Blood Cell Count 8.8 X10^3/uL (4.5-11.0)
[2024-12-23 12:37] LABS: Alanine Aminotransferase 27 IU/L (<50); Albumin 4.3 g/dL (3.5-5.0); Albumin Globulin Ratio 1.4 (1.0-2.8); Alkaline Phosphatase 72 U/L (38-126); Aspartate Aminotransferase 30 IU/L (17-59); BUN Creatinine Ratio 16.3 (6-22); Bilirubin Total 1.3 mg/dL (0.2-1.3); Blood Urea Nitrogen 17 mg/dL (9-20); Calcium 8.7 mg/dL (8.4-10.2); Carbon Dioxide 26 mmol/L (22-32); Chloride 103 mmol/L (98-107); Cholesterol 187 mg/dL (140-199); Estimated Glomerular Filt Rate > 60 mL/min (>60); Glucose 109 mg/dL (80-110); HDL Cholesterol 92 mg/dL (40-60); HEMOLYSIS < 15 (0-50); LDL Cholesterol Calculated 84 mg/dL (<100); Potassium 4.3 mmol/L (3.4-5.1); Sodium 138 mmol/L (137-145); Total Protein 7.3 g/dL (6.3-8.2); Triglycerides 56 mg/dL (35-150)
[2024-12-23 13:07] LABS: TSH w/ Reflex to FT4 1.56 uIU/mL (0.47-4.68)
== END ==
LOC: LAB 11:45
PROVIDERS: PCP Internal Medicine; Referring Provider Internal Medicine; Visit Provider Internal Medicine
DX: I10 Essential (primary) hypertension (principal); E78.2 Mixed hyperlipidemia
CPT/HCPCS: 36415; 80053; 80061; 84443; 85027

== ENCOUNTER → 2025-04-01 08:31 | Outpatient (CLI) | payer MEDICARE, OTHER, SELFPAY | PROVIDERS: PCP Internal Medicine; Visit Provider Urology | DX: N40.1 Benign prostatic hyperplasia with lower urinary tract symptoms (principal); N13.8 Other obstructive and reflux uropathy | CPT/HCPCS: 51798; 81002; 87086; 99213 ==